=== PATIENT | female | born 1980 ===

== ENCOUNTER 2017-12-03 09:32 | Day surgery (SDC) | payer MEDICARE, MEDICAID ==
[2017-12-03] MEDS ORDERED: Bacitracin 500 Units/gm Oint Foilpak UD ONE (12:39)
[2017-12-03 13:27] VITALS: BMI 23.6
[2017-12-03 13:37] VITALS: BP 129/87; PULSE 89; RESP 20; TEMP 99.3; O2SAT 96
== END 2017-12-03 14:30 | disposition home or self-care (01) ==
LOC: C.ENDO 09:32
PROVIDERS: ATTEND Internal Medicine Gastroenterology
DX: K94.23 Gastrostomy malfunction (principal)